=== PATIENT | male | born 1970 | race Caucasian/White ===

== ENCOUNTER 2017-02-02 09:02 | Emergency (ER) | payer MEDICAID ==
[~2017-02-02] VITALS: Wt 107.0 kg
[2017-02-02] MEDS ORDERED: KETOROLAC 30 MG INJ IM STA (09:38)
--- NOTE | 2017-02-02 10:44 | RADRPT ---
PROCEDURE: XR Lumbar Spine. CLINICAL INDICATION: Back pain. TECHNIQUE: Three views. AP, lateral and cone-down lateral view of the lumbar spine were obtained. COMPARISON: No prior studies are available for comparison. FINDINGS: There is normal stature and alignment of the vertebrae. There is no fracture. There is no lytic or blastic lesion. The disc height is normal. Small osteophytes are present at L2-3, L3-4, and L4-5. The paravertebral soft tissues are unremarkable. IMPRESSION: 1. Mild degenerative change. 2. Otherwise unremarkable images of the lumbar spine. RPTAT: QQ .Angel Haley MD, MD Date Time Electronically viewed and signed by .Angel Haley MD, MD on 02/02/2017 10:44 .R/
--- NOTE | 2017-02-02 10:46 | RADRPT ---
PROCEDURE: XR Bilateral Hips. CLINICAL INDICATION: Bilateral hip pain. TECHNIQUE: Four views. Frontal and lateral right hip. Frontal and lateral left hip. COMPARISON: No prior studies are available for comparison. FINDINGS: There is no fracture or dislocation. The soft tissues are normal. There are severe degenerative changes of the right hip with joint space narrowing and osteophytes. T here is a right hip acetabular dysplasia with lateral displacement of the femoral head. The left hip is unremarkable. There is no lytic or blastic lesion. There is no radiopaque foreign body. IMPRESSION: 1. 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 2. Normal left hip. 3. Otherwise unremarkable study. RPTAT: QQ .Angel Haley MD, MD Date Time Electronically viewed and signed by .Angel Haley MD, MD on 02/02/2017 10:46 .R/
[2017-02-02] MEDS ORDERED: IBUP-1542 PO (10:56)
[2017-02-02] MEDS ORDERED: TRAM50TA2 PO (10:56)
--- NOTE | 2017-02-02 11:03 | ERD ---
ER Documentation Chief Complaint Chief Complaint back pain HPI 36-year-old male presents with several month history of low back pain and right hip pain. 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 He denies any history of recent trauma no fevers, bowel or bladder incontinence, additional symptoms. ROS All systems reviewed and are negative except as per history of present illness. Medications Home Meds Active Scripts Ibuprofen* (Motrin*) 600 Mg Tab, 600 MG PO Q6, #20 TAB Prov:JEAN MARIE BATISTA MD 02/02/17 Tramadol HCl (Tramadol HCl) 50 Mg Tablet, 50 MG PO Q4 Y for PAIN, #20 TAB Prov:JEAN MARIE BATISTA MD 02/02/17 Allergies Allergies: Coded Allergies: No Known Allergy (Unverified , 02/02/17) PMhx/Soc Medical and Surgical Hx: pt denies Medical Hx, pt denies Surgical Hx Hx Alcohol Use: No Hx Substance Use: No Hx Tobacco Use: No Smoking Status: Never smoker Physical Exam Vitals Vital Signs Date Time Temp Pulse Resp B/P Pulse Ox O2 Delivery O2 Flow Rate FiO2 02/02/17 09:04 98.0 98 20 172/88 98 Physical Exam Const: [], No apparent distress. Head: Atraumatic Eyes: Normal Conjunctiva ENT: Normal External Ears, Nose and Mouth. Neck: Full range of motion..~ No meningismus. Resp: Clear to auscultation bilaterally Cardio: Regular rate and rhythm, no murmurs Abd: Soft, non tender, non distended. Normal bowel sounds Skin: No petechiae or rashes Back: No midline or flank tenderness or tenderness in the left L4-5 paraspinous muscles. Ext: No cyanosis, or edema tenderness with passive range of motion primarily at the right hip. Neur: Awake and alert Psych: Normal Mood and Affect Results 24 hrs Current Medications Medications (Trade) Dose Ordered Sig/Sal Route PRN Reason Start Time Stop Time Status Last Admin Dose Admin Ketorolac Tromethamine (Toradol) 30 mg ONCE STAT IM 02/02/17 09:38 02/02/17 09:40 DC 02/02/17 09:50 Procedures/MDM X-ray bilateral hip 2V Interpreted by me: Bones: [No fracture] Joints: [No dislocation] Foreign body: [None]. Impression-severe degenerative changes of the right hip. Normal left hip. X-ray LS-Spine 3V Interpreted by me: Bones: [No fracture] Joints: [No dislocation] Foreign body: [None] impression-degenerative changes lumbar spine without fracture or dislocation. She was given Toradol 30 mg IM. Patient presents with history of several month of low back pain and right hip pain with signs of severe arthritis of the right hip. Likely due to any abnormal gait due to post polio syndrome. Patient was recommended to have outpatient orthopedic evaluation. He was treated with tramadol ibuprofen recommendations for outpatient orthopedic follow-up. Patient was advised he may need authorization from his primary doctor. She should return for fevers, new or worsening symptoms. Departure Diagnosis: Primary Impression: Hip pain Laterality: right Qualified Code: M25.551 - Pain of right hip joint Additional Impression: Back pain Back pain location: low back pain Chronicity: acute Back pain laterality: unspecified Sciatica presence: without sciatica Qualified Code: M54.5 - Acute low back pain without sciatica, unspecified back pain laterality Condition: Stable Patient Instructions: What Is Arthritis?, Back Pain (Acute Or Chronic) Referrals: YOSEPH SERNA MD, HRAIR E MD [facility] Hours: Mon-Mon 9:00 AM - 5:00 PM Additional Instructions: There is arthritis of the right hip. See orthopedist for further evaluation and treatment. Recheck for fevers, new symptoms. JEAN MARIE BATISTA MD Feb 02, 2017 11:03
== END 2017-02-02 11:30 | disposition home or self-care (01) ==
LOC: FTE 09:02
DX: M25.551 Pain in right hip (principal); M54.5 Low back pain
CPT/HCPCS: 72100; 73520; 96372; J1885; Z7502